=== PATIENT | male | born 2000 | race Caucasian/White ===

== ENCOUNTER 2024-01-31 14:10 | Emergency (ER) | payer MEDICAID, SELFPAY ==
[2024-01-31 14:19] VITALS: BP 156/102; PULSE 97; RESP 16; TEMP 37.2; O2SAT 99
--- NOTE | 2024-01-31 14:27 | ED_ITS ---
HPI - General Adult General Chief complaint: Extremity Problem,Nontraumatic Stated complaint: hand pain Time Seen by Provider: 01/31/24 14:25 Source: patient and family Mode of arrival: ambulatory Limitations: no limitations History of Present Illness HPI narrative: 23 years old white male came to the ED complaining of finger pain, pressure like feeling became popping his knuckles every now and then for months. . Patient denies any specific trauma. Patient playing a long hours PlayStation daily. Related Data Home Medications Medication Instructions Recorded Confirmed No Home Medications 01/31/24 01/31/24 Allergies Allergy/AdvReac Type Severity Reaction Status Date / Time codeine Allergy Mild RESP Verified 01/31/24 14:16 DIFFICULTY Review of Systems Review of Systems: All systems reviewed & are unremarkable except as noted in HPI and below Exam Narrative: General appearance: Well-developed, well-nourished Skin: Normal color Head: Normocephalic, nontraumatic Eyes: Clear conjunctiva ENT: Oropharynx normal, ears normal, nose normal Neck: Supple, nontender Chest and respiratory: Airway patent, no respiratory distress, no accessory muscle use Heart: Regular rate/rhythm Abdomen: Soft, nontender, no organomegaly, quiet bowel sounds Vascular: Normal peripheral pulses, normal capillary refill. Musculoskeletal: Normal range of motion, nontender back Neurologic: Alert and oriented ?3, [employer] is normal as tested, no gross motor deficit Course Vital Signs Vital signs: Vital Signs Oxygen Delivery Room Air 01/31/24 14:10 Temperature 37.2 C 01/31/24 14:19 Pulse Rate 97 01/31/24 14:19 Respiratory Rate 16 01/31/24 14:19 Blood Pressure 156/102 H 01/31/24 14:19 Pulse Oximetry 99 01/31/24 14:19 Oxygen Delivery Room Air 01/31/24 14:19 Medical Decision Making Vital Signs Vital Signs: Vital Signs Oxygen Delivery Room Air 01/31/24 14:10 Temperature 37.2 C 01/31/24 14:19 Pulse Rate 97 01/31/24 14:19 Respiratory Rate 16 01/31/24 14:19 Blood Pressure 156/102 H 01/31/24 14:19 Pulse Oximetry 99 01/31/24 14:19 Oxygen Delivery Room Air 01/31/24 14:19 Critical Care Time Critical Care Time Critical Care Time: No Discharge Plan Discharge Clinical Impression: Finger dysfunction Patient Disposition: Home, Self-Care Condition: Stable Instructions: Arthralgia (ED) Additional Instructions: Return if symptoms are worsening , call your family physician for appointment, take Tylenol, ibuprofen as as needed for aches and pain, continue home medications. people often use knuckle cracking as a self soothing mechanism to manage their anxiety. Active movement and stretches as your finger joints opening and closing your hand as wide as you can with help keep the joints flexible and mobile to prevent cracking and popping Take few minutes break every 1 hour while playing PlayStation Prescriptions: No Action No Home Medications Follow-up/Referrals: Harry Callaway MD [Physician] - 02/03/24 2:31 pm UNKNOWN,DOCTOR [Primary Care Provider] -
== END 2024-01-31 14:50 | disposition home or self-care (01) ==
LOC: CHSED 14:41
PROVIDERS: Emergency Provider Emergency Medicine
DX: M79.645 Pain in left finger(s) (principal); M79.644 Pain in right finger(s)
CPT/HCPCS: 99281

== ENCOUNTER 2024-09-03 11:35 | Emergency (ER) | payer BC, SELFPAY ==
--- NOTE | 2024-09-04 09:28 | ED_ITS ---
HPI - General Adult General Chief complaint: Skin/Abscess/Foreign Body Stated complaint: SKIN ABSCESS History of Present Illness HPI narrative: downtime/see paper chart Related Data Home Medications ?Medication ?Instructions ?Recorded ?Confirmed ?Last Taken ?Type No Home Medications 01/31/24 01/31/24 Unknown History Allergies Allergy/AdvReac Type Severity Reaction Status Date / Time codeine Allergy Mild RESP Verified 01/31/24 14:16 DIFFICULTY Discharge Plan Discharge Clinical Impression: Abscess of skin or subcutaneous tissue Qualifiers: Site of cutaneous abscess: unspecified site Qualified Code(s): L02.91 - Cutaneous abscess, unspecified Patient Disposition: Home Condition: Stable Patient Language: Croatian Prescriptions: No Action No Home Medications Time of Disposition: 09:30
== END 2024-09-03 12:00 | disposition home or self-care (01) ==
LOC: CHSED 09-04 07:34
PROVIDERS: Emergency Provider Emergency Medicine; PCP Family Medicine
DX: L02.416 Cutaneous abscess of left lower limb (principal); Z86.14 Personal history of Methicillin resistant Staphylococcus aureus infection
CPT/HCPCS: 99283